=== PATIENT | female | born 1990 | race Caucasian/White ===

== ENCOUNTER → 2018-04-28 | Outpatient (CLI) | payer OTHER | LOC: FIMAGING 09:29 | PROVIDERS: ATTEND Advanced Practice Midwife | DX: O36.5930 Maternal care for other known or suspected poor fetal growth, third trimester, not applicable or unspecified (principal); O99.013 Anemia complicating pregnancy, third trimester; Z3A.30 30 weeks gestation of pregnancy ==

== ENCOUNTER 2018-06-02 15:00 | Inpatient (IN) | payer OTHER ==
[2018-06-02] MEDS ORDERED: EPSOM SALT 454 GM TP PRN (16:24)
[2018-06-02] MEDS ORDERED: LIDOCAINE 1% 300 MG/30 ML SDV SC PRN (16:24)
[2018-06-02] MEDS ORDERED: IBUPROFEN 600 MG TAB PO PRN (16:24)
[2018-06-02] MEDS ORDERED: PENICILLIN G POTASSIUM 5,000,000 UNIT in D5W 150 ML IV ONE (16:24)
[2018-06-02] MEDS ORDERED: OXYTOCIN/RINGERS LACTATE 1,000 ML IV PRN (16:24)
[2018-06-02] MEDS ORDERED: MISOPROSTOL 200 MCG TAB PR PRN (16:24)
[2018-06-02] MEDS ORDERED: OLIVE OIL 118 ML BTL MISC PRN (16:24)
[2018-06-02] MEDS ORDERED: LR 1,000 ML IV PRN (16:24)
--- NOTE | 2018-06-02 16:24 | PDGENHP ---
History and Physical History and Physical: CARE: [facility] HPI: Patient is a 27 yo G 1 P 0 at 35.2 weeks ega who presents to L&D with PPROM yesterday morning. She presented to office today due to "leaking" clear fluid off and on since around 0800 yesterday morning. Active baby, denies pain/ contractions or vaginal bleeding. Amnisure in office was positive. She transferred care to us at 25 weeks when she moved her from [place]. She has had an uncomplicated other than anemia - she is taking iron supplement daily. EDC: 07/05/18 which is based on LMP: 09/26/17 which is known and consistent with Ultrasound at 11 weeks. Review of Systems: Constitutional: Denies any fever, chills, or fatigue HEENT: denies any visual changes, difficulty swallowing, hearing loss Cardiovascular: Denies any chest pain, palpitations, leg swelling Respiratory: denies any cough, wheezing, or shortness of breathe GI: Denies any nausea, vomiting, diarrhea, constipation : denies any dysuria, urgency, frequency, vaginal bleeding Musculoskeletal: denies any muscle or bone pain Skin: denies any rashes Neuro: denies any headache, seizures, lightheadedness, dizziness, or loss of consciousness Psychiatric: denies any depression, anxiety, or SI/HI thoughts HISTORY: Previous OB history: none Past medical history: none Social history; , no tobacco, alcohol or recreational drugs Past surgical history: ACL 2012 Medications: PNV, iron Allergies (list reaction): NKDA LABS: Rh: O pos ABS: Neg Rubella: Immune HbsAg: NR HIV: NR VDRL: NR 1hr: 101 GC: Neg Chlamydia: Neg Pap: Normal GBS: neg PHYSICAL EXAM: Constitutional: WNL, A&Ox3 Skin: pink, warm, dry HEENT: normocephalic atraumatic, supple Heart: RRR, no murmur Chest: CTA-B Abdomen: Soft, nontender, gravid SVE: closed per speculum exam Extremities: trace edema, negative facundo's sign Neuro: grossly normal Psych: normal affect assessment: Reassuring FHTs, baseline 140s +accels, no decels, moderate variability Contractions: toco quiet Assessment: 1) 27 yo G 1 with IUP@ 35.2 2) PPROM clear fluid - not actively jessi 3) GBS unknown 4) Cat 1 FHR tracing Plan: 1) Admit to L&D 2) Betamethasone 12 mg now - will repeat in 24 hours if undelivered 3) Unknown GBS status- will start prophylaxis with IV PCN G - send cx now 4) Per Dr Derrick Albert, will start induction of labor with buccal cytotec q 4 hours X 2 doses - 8 hours after first dose of betamethasone 5) Reevaluate in AM - will start pitocin when appropriate if not laboring after cytotec 6) Reviewed POC with Dr Nuñez
[2018-06-02] MEDS ORDERED: BETAMETHASONE IM SYRINGE IM ONE (16:29)
[2018-06-02] MEDS ORDERED: ZOLPIDEM TARTRATE 5 MG TAB PO PRN (16:45)
[2018-06-02 17:00] LABS: PLATELET COUNT 296 10^3/uL (150-400)
[2018-06-02] MEDS ORDERED: PENICILLIN G POTASSIUM 2,500,000 UNIT in D5W 150 ML IV SCH (20:28)
[2018-06-02] MEDS ORDERED: OLIVE OIL 118 ML BTL MISC ONE (20:43)
[2018-06-02] MEDS ORDERED: LIDOCAINE 1% 300 MG/30 ML SDV ONE (20:43)
[2018-06-02] MEDS ORDERED: OXYTOCIN 10 UNIT/ML VIAL ONE (20:44)
[2018-06-02] MEDS ORDERED: TERBUTALINE SULFATE 1 MG/ML VIAL ONE (20:44)
[2018-06-02] MEDS ORDERED: MISOPROSTOL 200 MCG TAB ONE (20:44)
[2018-06-02] MEDS ORDERED: AMMONIA AROMATIC 1 EACH AMP IH ONE (20:44)
[2018-06-02] MEDS: PENICILLIN G POTASSIUM 2,500,000 UNIT in D5W 150 ML IV SCH (23:28)
[2018-06-03] MEDS: MISOPROSTOL 50 MCG CAP PO SCH (01:50)
[2018-06-03] MEDS: PENICILLIN G POTASSIUM 2,500,000 UNIT in D5W 150 ML IV SCH ×2 (03:34→10:50)
[2018-06-03] MEDS ORDERED: ONDANSETRON 4 MG/2 ML VIAL IVP ONE (06:15)
--- NOTE | 2018-06-03 07:27 | OBPROG ---
Labor Progress Note Assessment/Plan: Assessment: 27 y/o at 35.3 weeks ega Active labor after 1 dose of cytotec - awake with painful contractions since 0500 Category 2 EFM - 140s baseline with good variability and accels - intermittent variables - difficulty tracing FHTS with ext monitor Contractions q 2-3 - mod/firm SVE 8/90/0 station Using Nitrous for pain relief VSS - afebrile Plan: FSE placed Anticipate imminent 06/03/18 08:43 06/03/18 08:50 Subjective/Intrapartum Course: 06/03/18 08:47 VEry uncomfortable with contractions. Using nitrous for pain relief. Feeling pushy with some involuntary pushing. Objective: 06/02/18 16:00 Patient ABO/Rh O POSITIVE 06/02/18 16:00 - SVE Dilation (cm): 8 Effacement (%): 90 Station: 0 Membranes: SROM Amniotic Fluid Color: Clear - Contraction Pattern Assessment Current Contraction Pattern: Regular - Procedures Non-surgical Procedures: FSE Oxytocin Orders Assessment - Pre-Induction/Augmentation Assessment Gestational Age: 35 week(s) and 2 day(s) ICD10 Worksheet Patient Problems: Problems Problem Status Onset premature rupture of membranes (PPROM) delivered, current hospitalization Acute Vaginal delivery Acute
[2018-06-03] MEDS ORDERED: SIMETHICONE 80 MG TAB CHEW PO PRN (08:23)
[2018-06-03] MEDS ORDERED: HYDROCORTISONE 0.5% CREAM TP PRN (08:23)
[2018-06-03] MEDS ORDERED: HYDROCODONE/APAP 5/325 TAB PO PRN (08:23)
--- NOTE | 2018-06-03 08:31 | OBDEL ---
Info Type: Vaginal Presentation at Delivery: Vertex L&D Analgesia/Anesthesia Type: Local, Nitrous GBS+: No (unknown - treated prophylactically with PCN G) Intrapartum Medications: Generic Name Dose Route Start Last Admin Trade Name Freq PRN Reason Stop Dose Admin Lactated Ringer's 1,000 mls @ 0 mls/hr 06/02/18 16:24 06/02/18 17:43 Lr IV 06/03/18 16:23 1,000 mls PRN PRN Administration SEE PROTOCOL CONDITIONS Protocol Per Protocol Penicillin G Potassium 2,500, 155 mls @ 155 mls/hr 06/02/18 23:00 06/03/18 03 :34 000 unit/ Dextrose IV 07/02/18 22:59 155 mls Q4H BLAISE Administration Protocol Zolpidem Tartrate 5 mg 06/02/18 16:45 06/02/18 20:11 Ambien PO 11/29/18 16:44 5 mg HS PRN Administration Sleep/Insomnia Discontinued Medications Generic Name Dose Route Start Last Admin Trade Name Freq PRN Reason Stop Dose Admin Betamethasone Acet/Betameth SodPhos 12 mg 06/02/18 16:29 06/02/18 17:40 Celestone Im Syringe IM 06/02/18 16:30 12 mg ONCE ONE Administration Penicillin G Potassium 5,000, 160 mls @ 160 mls/hr 06/02/18 16:24 06/02/18 17 :49 000 unit/ Dextrose IV 06/02/18 17:23 160 mls ONCE ONE Administration Protocol Misoprostol 50 mcg 06/03/18 01:00 06/03/18 01:50 Cytotec PO 06/03/18 05:01 50 mcg Q4H BLAISE Administration Ondansetron HCl 4 mg 06/03/18 06:15 06/03/18 06:24 Zofran IVP 06/03/18 06:16 4 mg ONCE ONE Administration - Infant Care Provider Director Of Bands/METER ENGINEER: Sera Muñoz Indications for Delivery: PPROM Vaginal Delivery - Delivery Provider Delivery Physician/CNM: Kamilah Hernandez - Labor and Delivery Onset of Contractions Date: 06/03/18 Onset of Contractions Time: 04:00 Onset of Contractions Type: Induced Rupture of Membranes Date: 06/02/18 Rupture of Membranes Time: 08:00 Rupture of Membranes Type: Spontaneous Amniotic Fluid Color: Clear Dilation Complete Date: 06/03/18 Dilation Complete Time: 07:35 Placenta Delivery Date: 06/03/18 Placenta Delivery Time: 07:57 Total Hours of Labor: 3 Non-surgical Procedures: FSE, Episiotomy Episiotomy: Midline Repair: 3-0, Vicryl Vaginal Sponge Count Correct: Yes Vaginal Needle Count Correct: Yes Vaginal Sweep Performed: Yes EBL: 150 Delivery Events: None Delivery Comment: FHTs 80s-90s last 5-6 minutes of pushing without recovery between contractions. Baby delivered promptly after midline episiotomy. Vigorous at delivery and placed skin to skin for delayed cord clamping. METER ENGINEER at bedside. - Medications Labor Augmentation/Induction Methods Used: Misoprostol (X 1 dose) Labor Augmentation/Induction Indication: Other (Specify) (PPROM at 35.2 weeks ega) [place] Data DEE: 07/05/18 Gestational Age: 35 week(s) and 3 day(s) [place] Delivery Date: 06/03/18 Delivery Time: 07:50 Sex of Infant: Female Score (1 Min): 8 Score (5 Min): 9 ICD10 Worksheet Patient Problems: Problems Problem Status Onset premature rupture of membranes (PPROM) delivered, current hospitalization Acute Vaginal delivery Acute - ICD10 Problem Qualifiers (1) Vaginal delivery
[2018-06-03] MEDS: ACETAMINOPHEN 325 MG TAB PO PRN ×3 (08:37→22:32)
[2018-06-03] MEDS: IBUPROFEN 600 MG TAB PO PRN ×2 (16:35→22:31)
[2018-06-03] MEDS: DOCUSATE SODIUM 100 MG CAP PO PRN (22:30)
[2018-06-04] MEDS: MISOPROSTOL 50 MCG CAP PO SCH (01:47)
[2018-06-04] MEDS: IBUPROFEN 600 MG TAB PO PRN ×3 (06:11→18:09)
[2018-06-04] MEDS: ACETAMINOPHEN 325 MG TAB PO PRN ×3 (06:11→18:09)
[2018-06-04] MEDS: DOCUSATE SODIUM 100 MG CAP PO PRN ×2 (08:39→20:02)
--- NOTE | 2018-06-04 10:46 | OBPP ---
Progress Note Assessment/Plan: Assessment: Plan: Subjective/ Course: 06/04/18 10:44 VSS, bleeding minimal, and pumping. 06/04/18 10:46 Objective: 06/02/18 16:00 Patient ABO/Rh O POSITIVE 06/02/18 16:00 Group B Strep DNA NEGATIVE (NEGATIVE) 06/02/18 17:59 Temp Pulse Resp BP Pulse Ox 36.8 C 63 16 112/56 L 96 06/04/18 08:30 06/04/18 08:30 06/04/18 08:30 06/04/18 08:30 06/04/18 08:30 Uterine Position/Fundal Height: At Umbilicus Uterine Tone: Firm Physical Exam - Physical Exam EENT: normal ENT inspection Respiratory: lungs clear Abdomen: flatus Extremities: normal range of motion Skin: normal color, warm/dry
[2018-06-05] MEDS: ACETAMINOPHEN 325 MG TAB PO PRN (03:00)
[2018-06-05] MEDS: IBUPROFEN 600 MG TAB PO PRN ×3 (03:01→15:31)
[2018-06-05] MEDS: DOCUSATE SODIUM 100 MG CAP PO PRN (09:09)
[2018-06-05 11:46] VITALS: BP 112/62
--- NOTE | 2018-06-05 12:24 | OBGCSDC ---
General Delivery Information - General Info : 1 Para: 1 Abortions: 0 Type: Vaginal L&D Analgesia/Anesthesia Type: Nitrous Admission Date: 06/02/18 Labs: Patient ABO/Rh O POSITIVE 06/02/18 16:00 Hct 35.3 % (38.0-47.0) L 06/02/18 16:00 Group B Strep DNA NEGATIVE (NEGATIVE) 06/02/18 17:59 - Hospital Course Intrapartum: 06/03/18 08:47 VEry uncomfortable with contractions. Using nitrous for pain relief. Feeling pushy with some involuntary pushing. : 06/04/18 10:44 VSS, bleeding minimal, and pumping. 06/04/18 10:46 S) Pt doing well, reports min pain and bleeding. she is ambulating and voiding without difficulty. She is working on . She [place] today O) VSS, afebrile constitutional: WNF, A&Ox3 HEENT: normocephalic, atraumatic, supple Heart: RRR, No murmur Chest: CTA-B Breasts: soft, nontender, not engorged, nipples intact Abdomen: Soft, nontender Uterus: Firm at U-2 Lochia: Minimal rubra Perineum: Intact, healing well Extremities: Trace edema, and negative Faith's sign Neuro: Grossly normal A) 27-year-old S/P PPD#2 baby in NICU P) Discharge to [place] today Continue /pumping Pelvic rest x6wks Discussed danger signs (infection, preeclampsia, depression, heavy bleeding, etc ) RTO in 2/4/6 weeks Vaginal - Delivery Provider Delivery Physician/CNM: Kamilah Hernandez - Diagnosis Labor: Induced Rupture of Membranes Type: Spontaneous Amniotic Fluid Color: Clear Episiotomy: Midline Repair: 3-0, Vicryl Delivery Events: None - Procedures Non-surgical Procedures: FSE - Delivery Non-surgical Procedures: FSE Data DEE: 07/05/18 Gestational Age: 35 week(s) and 6 day(s) [place] Delivery Date: 06/03/18 Delivery Time: 07:50 Sex of Infant: Female Royal Weight (gm): 2440 g Score (1 Min): 8 Score (5 Min): 9 Discharge Information - Discharge Information Condition: Good
== END 2018-06-05 19:56 | disposition home or self-care (01) | DRG 805 ==
LOC: FLD 15:00 → FOB 06-03 11:00
PROVIDERS: ADMIT Advanced Practice Midwife; ATTEND Advanced Practice Midwife
PROC: 0W8NXZZ Division of Female Perineum, External Approach (ICD-10-PCS; principal; 2018-06-03)
PROC: 10E0XZZ Delivery of Products of Conception, External Approach (ICD-10-PCS; principal; 2018-06-03)
PROC: 3E0P7GC Introduction of Other Therapeutic Substance into Female Reproductive, Via Natural or Artificial Opening (ICD-10-PCS; principal; 2018-06-03)
DX: O42.013 Preterm premature rupture of membranes, onset of labor within 24 hours of rupture, third trimester (principal); O60.14X0 Preterm labor third trimester with preterm delivery third trimester, not applicable or unspecified; O99.013 Anemia complicating pregnancy, third trimester; Z3A.35 35 weeks gestation of pregnancy; Z37.0 Single live birth
CPT/HCPCS: J0702; J2405; J2540; J2590; J3105